=== PATIENT | male | born 1960 | race Caucasian/White ===

== ENCOUNTER 2022-02-04 20:25 | Emergency (ER) | payer OTHER ==
[2022-02-04 20:30] VITALS: PULSE 101
[2022-02-04] MEDS ORDERED: Alum Hydrox/Mag Hydrox/Simeth 30 ML, Lidocaine 2% 15 ML PO ONE ×2 (20:33)
[2022-02-04] MEDS: Sodium Chloride 0.9% 10 ML Syringe FLUSH PRN ×2 (20:37→23:47)
[2022-02-04] MEDS ORDERED: Pantoprazole 40 MG Vial IVPUSH ONE (21:03)
[2022-02-04] MEDS ORDERED: Sucralfate Suspension 1 GM/10 ML Cup PO ONE (21:03)
[2022-02-04] MEDS ORDERED: Sodium Chloride 0.9% 10 ML SDV FLUSH ONE (23:16)
[2022-02-04] MEDS ORDERED: Iopamidol 755 Mg/ML 100 ML Bottle IVPUSH ONE (23:16)
[2022-02-04] MEDS ORDERED: Sodium Chloride 0.9% 100 ML IV SCH (23:30)
[2022-02-05] MEDS ORDERED: Sucralfate Suspension 1 GM/10 ML Cup PO ONE (00:56)
[2022-02-05 01:33] VITALS: BP 145/93
== END 2022-02-05 01:15 | disposition home or self-care (01) ==
LOC: JD.ED 20:25
DX: R10.12 Left upper quadrant pain (principal); R10.13 Epigastric pain; I10 Essential (primary) hypertension; Z79.899 Other long term (current) drug therapy; Z86.16 Personal history of COVID-19
CPT/HCPCS: 36415; 71045; 71275; 80053; 80307; 84484; 85025; 85379; 93005; 96374; 99285; A9270; C9113; Q9967; 93010

== ENCOUNTER 2022-04-20 12:59 | Day surgery (SDC) | payer OTHER ==
[~2022-04-20 12:59] MED LIST: Lactated Ringers 1,000 ML IV SCH; Lidocaine 1% 4 ML ONE; Lidocaine 1% with EPINEPHrine 1:100,000 10 ML MDV ONE; Lidocaine 1% with EPINEPHrine 1:100,000 20 ML MDV ONE; Lidocaine 1%/Sod Bicarbonate in NS 8.4% 1 ML Syringe IDERM PRN; Midazolam 1 MG/ML 2 ML SDV ONE; Propofol 200 MG/20 ML SDV ONE; Sodium Chloride 0.9% 10 ML Syringe FLUSH PRN; Sodium Chloride 0.9% 10 ML Syringe FLUSH SCH; Sodium Chloride 0.9% 50 ML SDV ONE; fentaNYL 100 MCG/2 ML SDV ONE
[2022-04-20] MEDS ORDERED: Clindamycin Phosphate in D5W 900 MG in Premix Bag 1 BAG IV ONE ×2 (14:00)
[2022-04-20 16:47] VITALS: BP 127/80; PULSE 65
== END 2022-04-20 16:44 | disposition home or self-care (01) ==
LOC: JD.SDS 12:59
PROVIDERS: ATTEND Surgery
DX: C20 Malignant neoplasm of rectum (principal); I10 Essential (primary) hypertension; K21.9 Gastro-esophageal reflux disease without esophagitis; Z98.890 Other specified postprocedural states; Z79.899 Other long term (current) drug therapy; Z88.1 Allergy status to other antibiotic agents; Z88.8 Allergy status to other drugs, medicaments and biological substances
CPT/HCPCS: 71045; 71045-26; 76000; 87641; C1788; J1642; J2250; J2704; J3010; J3490; J7120

== ENCOUNTER 2022-07-12 03:13 | Emergency (ER) | payer OTHER ==
[2022-07-12 06:26] VITALS: BP 140/92; PULSE 73
== END 2022-07-12 06:24 | disposition home or self-care (01) ==
LOC: JD.ED 03:13
DX: K21.9 Gastro-esophageal reflux disease without esophagitis (principal); I10 Essential (primary) hypertension; Z88.0 Allergy status to penicillin; Z79.899 Other long term (current) drug therapy; Z86.16 Personal history of COVID-19
CPT/HCPCS: 36415; 71045; 71045-26; 80053; 82947; 83735; 83880; 84484; 85025; 85379; 93005; 99285

== ENCOUNTER 2024-05-06 16:01 | Emergency (ER) | payer OTHER ==
[2024-05-06] MEDS ORDERED: Sodium Chloride 0.9% 10 ML Syringe FLUSH PRN (16:38)
[2024-05-06] MEDS ORDERED: Sodium Chloride 0.9% 100 ML IV SCH (16:45)
[2024-05-06] MEDS: Sodium Chloride 0.9% 1,000 ML IV SCH (17:44)
[2024-05-06 17:47] LABS: BASOPHILS PERCENT AUTO 1.1 % (0.0-1.0); EOSINOPHILS ABSOLUTE AUTO 0.2 K/mm3 (0.0-0.4); EOSINOPHILS PERCENT AUTO 5.1 % (0.0-6.0); HEMATOCRIT 36.9 % (42.0-52.0); HEMOGLOBIN 12.8 gm/dl (14.0-18.0); IMMATURE GRAN ABSOLUTE AUTO 0.13 K/mm3 (0.00-0.05); IMMATURE GRAN PERCENT AUTO 3.5 % (0.0-0.4); LYMPHOCYTES ABSOLUTE AUTO 0.6 K/mm3 (1.0-4.8); LYMPHOCYTES PERCENT AUTO 14.7 % (24.0-44.0); MEAN CORPUSCULAR HEMOGLOBIN 32.7 pg (28.0-32.0); MEAN CORPUSCULAR HGB CONC 34.7 g/dl (32.0-36.0); MEAN CORPUSCULAR VOLUME 94.1 fl (83.0-99.0); MEAN PLATELET VOLUME 10.5 fl (9.4-12.4); MONOCYTES ABSOLUTE AUTO 0.5 K/mm3 (0.0-0.8); MONOCYTES PERCENT AUTO 13.9 % (0.0-8.0); NEUTROPHILS ABSOLUTE AUTO 2.3 K/mm3 (1.8-7.7); NEUTROPHILS PERCENT AUTO 61.7 % (41.0-71.0); NRBC ABSOLUTE 0.07 (0.00-0.02); NRBC PERCENT 1.9 % (0.0-0.2); PLATELET COUNT,PLT 147 K/mm3 (150-400); RED BLOOD CELL COUNT 3.92 M/mm3 (4.52-5.90); WHITE BLOOD CELL COUNT,WBC 3.73 K/mm3 (3.9-11.3)
[2024-05-06 18:19] LABS: A/G RATIO 1.2 (1-2); ALBUMIN 3.2 g/dl (3.4-5.0); ANION GAP 14.5 (5-15); BILIRUBIN TOTAL 0.5 mg/dL (0.2-1.0); BUN/CREATININE RATIO 8.2 (14-18); CALCIUM 9.1 mg/dL (8.5-10.1); CREATININE 1.1 mg/dL (0.7-1.3); EST CRCL DRUG DOSING (CG) 72.82 mL/min; MAGNESIUM 1.8 mg/dL (1.8-2.4); POTASSIUM,K 3.5 mEq/L (3.5-5.1); PROTEIN TOTAL,TP 5.9 g/dl (6.4-8.2)
[2024-05-06] MEDS: Iopamidol 755 Mg/ML 100 ML Bottle IVPUSH ONE (18:31)
[2024-05-06 20:16] VITALS: BP 151/91; PULSE 82
== END 2024-05-06 20:15 | disposition home or self-care (01) ==
LOC: JD.ED 16:01
DX: C34.32 Malignant neoplasm of lower lobe, left bronchus or lung (principal); E86.0 Dehydration; K21.9 Gastro-esophageal reflux disease without esophagitis; Z79.899 Other long term (current) drug therapy; Z88.1 Allergy status to other antibiotic agents
CPT/HCPCS: 36415; 71045; 71275; 80053; 83735; 84484; 85025; 93005; 96360; 99285; J1642; J7030; Q9967; 93010

== ENCOUNTER 2025-10-28 10:30 | Emergency (ER) | payer OTHER ==
[2025-10-28 14:06] VITALS: BP 153/86; PULSE 75
== END 2025-10-28 13:25 | disposition home or self-care (01) ==
LOC: JD.ED 10:30
DX: S02.2XXA Fracture of nasal bones, initial encounter for closed fracture (principal); K21.9 Gastro-esophageal reflux disease without esophagitis; Z79.899 Other long term (current) drug therapy; Z88.1 Allergy status to other antibiotic agents; Z79.01 Long term (current) use of anticoagulants; W22.8XXA Striking against or struck by other objects, initial encounter
CPT/HCPCS: 70450; 70450-26; 70486; 70486-26; 72125; 72125-26; 99283; 99284